=== PATIENT | female | born 1990 | race African-American/Black ===

== ENCOUNTER 2017-08-28 19:37 | Emergency (ER) | payer SELFPAY | END 2017-08-28 20:55 | disposition home or self-care (01) | LOC: ER 19:37 | DX: S89.92XA Unspecified injury of left lower leg, initial encounter (principal); M25.462 Effusion, left knee; X58.XXXA Exposure to other specified factors, initial encounter; Y93.89 Activity, other specified; Y92.89 Other specified places as the place of occurrence of the external cause; Y99.8 Other external cause status | CPT/HCPCS: 29505; 73562; 99284 ==

== ENCOUNTER 2019-04-27 23:16 | Emergency (ER) | payer SELFPAY ==
[2017-08-28 19:46] VITALS: BP 135/65
[~2019-04-27 23:16] MED LIST: IBUP-1060 PO
== END 2019-04-28 00:05 | disposition left against medical advice (07) ==
LOC: ER 23:16
DX: K08.89 Other specified disorders of teeth and supporting structures (principal); Z53.21 Procedure and treatment not carried out due to patient leaving prior to being seen by health care provider